=== PATIENT | female | born 1950 | race Caucasian/White ===

== ENCOUNTER → 2016-11-07 | Outpatient (CLI) | payer OTHER | LOC: BMCIMAGING 08:21 | PROVIDERS: ATTEND Internal Medicine | DX: Z12.31 Encounter for screening mammogram for malignant neoplasm of breast (principal); Z13.820 Encounter for screening for osteoporosis | CPT/HCPCS: G0202 ==

== ENCOUNTER → 2016-11-08 | Outpatient (CLI) | payer OTHER | LOC: FIMAGING 08:39 | PROVIDERS: ATTEND Otolaryngology | DX: R13.10 Dysphagia, unspecified (principal) ==

== ENCOUNTER → 2017-03-14 | Outpatient (CLI) | payer OTHER | LOC: FIMAGING 15:53 | PROVIDERS: ATTEND Orthopaedic Surgery | DX: M75.82 Other shoulder lesions, left shoulder (principal); M75.22 Bicipital tendinitis, left shoulder; M75.52 Bursitis of left shoulder; M19.012 Primary osteoarthritis, left shoulder ==

== ENCOUNTER → 2018-01-09 | Outpatient (CLI) | payer OTHER | LOC: BMCIMAGING 13:56 | PROVIDERS: ATTEND Internal Medicine | DX: Z12.31 Encounter for screening mammogram for malignant neoplasm of breast (principal) ==

== ENCOUNTER 2018-01-28 09:21 | Emergency (ER) | payer OTHER ==
[2018-01-28] MEDS ORDERED: IBUPROFEN 600 MG TAB PO ONE (09:49)
[2018-01-28] MEDS ORDERED: HYDROCODONE/APAP 5/325 TAB PO ONE (09:49)
--- NOTE | 2018-01-28 09:53 | EDPHY ---
H & P Time Seen by Provider: 01/28/18 09:27 HPI/ROS: CHIEF COMPLAINT: Right shoulder pain History by patient HISTORY OF PRESENT ILLNESS: 67-year-old woman, right-hand dominant presents complaining of severe right shoulder pain at that she slipped and fell in the bathroom last night sustained a mechanical fall. She struck the back of her shoulder against the edge the bathroom counter. She said she heard a crack at that time. She denies hitting her head or losing consciousness. She denies any other pain or injury. She was able to take Tylenol p.m. And sleep but continued to have severe pain this morning. She denies any pleuritic pain. She says she takes deep breaths to help ease the pain. She has a history of left rotator cuff tear in the past. REVIEW OF SYSTEMS: As in HPI, and all other systems reviewed and are negative Smoking Status: Never smoked Physical Exam: General Appearance: Alert and no distress. Head: Normocephalic, atraumatic Eyes: Pupils equal and round no injection. Extraocular movements are intact. And chest: Lungs clear to auscultation bilaterally , with no wheezes, rales or rhonchi Musculoskeletal: Neck is supple and nontender. Extremities: Patient has supporting right elbow with arm held in adduction. Radial pulses 2+ and equal to the left. Full range of motion of right elbow wrist and fingers. Distal sensation intact. No obvious shoulder deformity. No anterior shoulder tenderness. Positive tenderness along upper scapula. Patient unable to abduct arm passively or actively due to severe pain. Positive posterior prominence of right scapula. Skin: No rashes or lesions except as described above. Constitutional: Initial Vital Signs Temperature (C) 36.8 C 01/28/18 09:24 Heart Rate 90 01/28/18 09:24 Respiratory Rate 18 01/28/18 09:24 Blood Pressure 117/75 01/28/18 09:24 O2 Sat (%) 96 01/28/18 09:24 O2 Delivery Mode Room Air Allergies/Adverse Reactions: No Known Allergies Allergy (Unverified 01/28/18 09:22) Home Medications: Medication Instructions Recorded [place] 01/28/18 Hydrocodone/APAP 5/325 [[place] 1 - 2 tab PO Q4H PRN #10 tab 01/28/18 5/325 (*)] MDM/Departure - MDM Imaging Results: Imaging Impressions Shoulder X-Ray 01/28/18 09:23 Impression: 1. Acute, vertically-oriented fracture involving the superior scapula extending to the lateral base of the coracoid process. 2. Glenohumeral anatomic alignment. 3. Acromial downsloping and prior old posttraumatic change to the acromioclavicular joint (similar to 09/16/2013). Imaging: I viewed and interpreted images myself Medications Given: Discontinued Medications Hydrocodone Bitart/Acetaminophen ([place] 5/325) 2 tab PO EDNOW ONE Stop: 01/28/18 09:50 Last Admin: 01/28/18 09:56 Dose: 2 tab Ibuprofen (Motrin) 600 mg PO EDNOW ONE Stop: 01/28/18 09:50 Last Admin: 01/28/18 09:56 Dose: 600 mg ED Course/Re-evaluation: [id number] woman presents with right posterior shoulder pain after a fall and direct blow to the shoulder. X-ray shows nondisplaced right scapular fracture. Patient was given ibuprofen and [place] for pain. Patient was placed in a right shoulder immobilizer and referred to Orthopedics for follow-up. Patient has seen Dr. Salas in the past for her left shoulder rotator cuff tear. - Depart Disposition: Home, Routine, Self-Care Clinical Impression: Right scapula fracture Qualifiers: Encounter type: initial encounter Scapula location: unspecified part of scapula Fracture type: closed Qualified Code(s): S42.101A - Fracture of unspecified part of scapula, right shoulder, initial encounter for closed fracture Condition: Good Instructions: Scapular Fracture (ED) Additional Instructions: You were seen by Dr. Neelima Norman today. You have a fracture of your right scapula (shoulder blade). Please wear the shoulder immobilizer. Please follow-up with your orthopedic surgeon, Dr. Salas as soon as possible. Please call 1st thing tomorrow morning to make an appointment. They should be expecting her call. You may place ice on the fracture for pain control. You may use this through the shoulder immobilizer. You may take ibuprofen 600 mg 4 times daily for pain. If this is inadequate you may also take [place] (hydrocodone plus acetaminophen) 1 or 2 tablets every 4 hr OR plain acetaminophen (Tylenol) a 1000 mg every 6 hr. Do not take acetaminophen (Tylenol) with the [place]. Do not drive while taking the [place]. Return for any worsening or new concerns. Prescriptions: Hydrocodone/APAP 5/325 [[place] 5/325 (*)] 1 - 2 tab PO Q4H PRN #10 tab PRN Reason: Pain, Moderate Referrals: Carmel Rios MD [Primary Care Provider] - As per Instructions Valencia Salas MD [Medical Doctor] - As per Instructions
[2018-01-28 11:06] VITALS: BP 108/77
== END 2018-01-28 10:58 | disposition home or self-care (01) ==
LOC: CED 09:21
DX: S42.101A Fracture of unspecified part of scapula, right shoulder, initial encounter for closed fracture (principal); W01.198A Fall on same level from slipping, tripping and stumbling with subsequent striking against other object, initial encounter; Y92.002 Bathroom of unspecified non-institutional (private) residence as the place of occurrence of the external cause
CPT/HCPCS: 73030; 99283; A4565